=== PATIENT | female | born 1965 | race Asian ===

== ENCOUNTER 2021-10-02 19:52 | Emergency (ER) | payer OTHER ==
[~2021-10-02] VITALS: Ht 149.9 cm; Wt 72.6 kg
[2021-10-02 21:00] LABS: PLATELET COUNT 283 K/uL (152-353)
[2021-10-02 21:03] LABS: POTASSIUM 3.8 mmol/L (3.6-5.2)
[2021-10-02 23:50] VITALS: BP 142/82; TEMP 98.5
== END 2021-10-02 22:50 | disposition home or self-care (01) ==
LOC: ED 19:52
PROVIDERS: Family Medicine
DX: R07.89 Other chest pain (principal); J40 Bronchitis, not specified as acute or chronic; I10 Essential (primary) hypertension
CPT/HCPCS: 80053; 82550; 84484; 85027; 85379; 85610; 85730; 93005; 96372; 99283; J1200; J1885